=== PATIENT | male | born 1975 | race Caucasian/White ===

== ENCOUNTER 2018-03-09 05:41 | Emergency (ER) | payer OTHER ==
[2018-03-09 06:30] LABS: ADD MAN DIFF? NO
[2018-03-09 06:31] LABS: BASOPHIL # 0.1 10^3/ul (0.0-0.1); EOSINOPHILS # 0.8 10^3/ul (0.0-0.5); EOSINOPHILS % 11.7 % (0.0-7.0); HEMATOCRIT 31.7 % (42.0-52.0); HEMOGLOBIN 9.9 g/dl (14.0-18.0); LYMPHOCYTES # 0.8 10^3/ul (0.8-2.9); LYMPHOCYTES % 11.2 % (15.0-51.0); MEAN CORPUSCULAR HEMOGLOBIN 29.3 pg (29.0-33.0); MEAN CORPUSCULAR HGB CONC 31.2 g/dl (32.0-37.0); MEAN CORPUSCULAR VOLUME 93.8 fl (82.0-101.0); MEAN PLATELET VOLUME 9.8 fl (7.4-10.4); MONOCYTE # 0.9 10^3/ul (0.3-0.9); MONOCYTES % 13.4 % (0.0-11.0); NEUTROPHIL # 4.3 10^3/ul (1.6-7.5); NEUTROPHILS % 62.4 % (39.0-77.0); PLATELET COUNT 257 10^3/UL (140-415); RED BLOOD COUNT 3.38 10^6/ul (4.70-6.10); RED CELL DISTRIBUTION WIDTH 15.4 % (11.5-14.5)
[2018-03-09 06:31] LABS: WHITE BLOOD COUNT 6.8 10^3/ul (4.8-10.8)
[2018-03-09 06:49] LABS: ALANINE AMINOTRANSFERASE 21 IU/L (13-69); ALBUMIN/GLOBULIN RATIO 1.11; ALKALINE PHOSPHATASE 190 IU/L (42-121); ANION GAP 11 (5-13); ASPARTATE AMINO TRANSFERASE 24 IU/L (15-46); BILIRUBIN,INDIRECT 0.1 mg/dl (0-1.1); BILIRUBIN,TOTAL 0.1 mg/dl (0.2-1.3); BLOOD UREA NITROGEN 41 mg/dl (7-20); CALCIUM 8.5 mg/dl (8.4-10.2); CARBON DIOXIDE 35 mmol/L (21-31); CHLORIDE 98 mmol/L (97-110); CREATININE 6.02 mg/dl (0.61-1.24); GLUCOSE 98 mg/dl (70-220); LIPASE 88 U/L (23-300); POTASSIUM 4.7 mmol/L (3.5-5.1); SODIUM 144 mmol/L (135-144); TOTAL PROTEIN 7.6 g/dl (6.1-8.1)
[2018-03-09] MEDS: ONDANSETRON 4 MG INJ IV (06:50)
[2018-03-09] MEDS: FAMOTIDINE 20 MG INJ IV (06:50)
[2018-03-09] MEDS: LIDOCAINE/MYLANTA 40 ML BTL PO (06:50)
[2018-03-09] MEDS: HYDROmorphONE 1 MG/ML SYG IV (06:50)
[2018-03-09] MEDS: SOD CHLORIDE 0.9% 500 ML IV (06:50)
[2018-03-09 06:51] LABS: INR 1.02; PROTIME 13.5 Sec (11.9-14.9); PT RATIO 1.1
[2018-03-09 06:52] LABS: PARTIAL THROMBOPLASTIN TIME 39.4 Sec (23.0-35.0)
[2018-03-09 07:00] LABS: TROPONIN-I 0.017 ng/ml (0.000-0.120)
[2018-03-09] MEDS: NICARDipine HCL 30 MG CAPSULE PO (07:44)
== END 2018-03-09 08:16 | disposition home or self-care (01) ==
LOC: E/R 05:41
DX: I12.0 Hypertensive chronic kidney disease with stage 5 chronic kidney disease or end stage renal disease (principal); N18.6 End stage renal disease; Z99.2 Dependence on renal dialysis
CPT/HCPCS: 36415; 71045; 74176; 80053; 83690; 84484; 85025; 85610; 85730; 93005; 96374; 96375; 99285-25

== ENCOUNTER 2018-04-01 18:08 | Inpatient (IN) | payer OTHER ==
[2018-04-01] MEDS ORDERED: ACETAMINOPHEN 325 MG TAB PO ×2 (19:00→21:00)
[2018-04-01] MEDS: HYDROmorphONE 1 MG/ML SYG IV (19:56)
[2018-04-01] MEDS: HYDROCODONE/APAP (5/325) TAB PO (23:21)
[2018-04-02] MEDS: NIFEdipine (XL) 60 MG TAB PO ×3 (00:03→20:45)
[2018-04-02] MEDS: LEVETIRACETAM 500 MG TAB PO ×2 (00:03→20:45)
[2018-04-02] MEDS: LABETALOL 100 MG TAB PO ×3 (00:04→20:44)
[2018-04-02] MEDS: HYDROmorphONE 1 MG/ML SYG IV ×6 (00:23→22:42)
[2018-04-02] MEDS: PANTOPRAZOLE (EC) 40 MG TAB PO (06:14)
[2018-04-02 06:21] LABS: ADD MAN DIFF? NO
[2018-04-02 06:22] LABS: BASOPHIL # 0.1 10^3/ul (0.0-0.1); BASOPHILS % 0.9 % (0.0-2.0); EOSINOPHILS # 0.8 10^3/ul (0.0-0.5); EOSINOPHILS % 15.1 % (0.0-7.0); HEMATOCRIT 30.5 % (42.0-52.0); HEMOGLOBIN 9.7 g/dl (14.0-18.0); LYMPHOCYTES # 0.8 10^3/ul (0.8-2.9); LYMPHOCYTES % 14.2 % (15.0-51.0); MEAN CORPUSCULAR HEMOGLOBIN 29.1 pg (29.0-33.0); MEAN CORPUSCULAR HGB CONC 31.8 g/dl (32.0-37.0); MEAN CORPUSCULAR VOLUME 91.6 fl (82.0-101.0); MONOCYTE # 0.8 10^3/ul (0.3-0.9); MONOCYTES % 13.8 % (0.0-11.0); NEUTROPHIL # 3.1 10^3/ul (1.6-7.5); NEUTROPHILS % 55.8 % (39.0-77.0); PLATELET COUNT 323 10^3/UL (140-415); RED BLOOD COUNT 3.33 10^6/ul (4.70-6.10); RED CELL DISTRIBUTION WIDTH 15.4 % (11.5-14.5)
[2018-04-02 06:22] LABS: WHITE BLOOD COUNT 5.6 10^3/ul (4.8-10.8)
[2018-04-02 06:43] LABS: ANION GAP 15 (5-13); BLOOD UREA NITROGEN 62 mg/dl (7-20); CALCIUM 8.3 mg/dl (8.4-10.2); CARBON DIOXIDE 26 mmol/L (21-31); CHLORIDE 102 mmol/L (97-110); CREATININE 7.93 mg/dl (0.61-1.24); Estimated GFR 7 mL/min (>60); GLUCOSE 100 mg/dl (70-220); POTASSIUM 4.9 mmol/L (3.5-5.1); SODIUM 143 mmol/L (135-144)
[2018-04-02] MEDS: DOCUSATE SODIUM 100 MG CAP PO (08:25)
[2018-04-02] MEDS: SEVELAMER CARBONATE 0.8 GM PKT PO (08:26)
[2018-04-02] MEDS: CALCIUM ACETATE 667 MG CAP PO ×3 (08:26→17:29)
[2018-04-02] MEDS ORDERED: VANCOMYCIN IV PER PHARMACY XX (10:30)
[2018-04-02 14:11] LABS: VANCOMYCIN,RANDOM < 5.0 ug/ml
[2018-04-02] MEDS: VANCOMYCIN 1.25 GM in SOD CHLORIDE 0.9% 250 ML IVPB (16:24)
[2018-04-02 18:13] LABS: HEPATITIS B SURFACE ANTIGEN NEGATIVE (NEGATIVE)
[2018-04-02] MEDS: HYDROCODONE/APAP (5/325) TAB PO (20:45)
[2018-04-03] MEDS: HYDROmorphONE 1 MG/ML SYG IV ×6 (02:43→22:08)
[2018-04-03] MEDS: HYDROCODONE/APAP (5/325) TAB PO (03:53)
[2018-04-03 06:03] LABS: URIC ACID 6.1 mg/dl (3.1-7.9)
[2018-04-03] MEDS: PANTOPRAZOLE (EC) 40 MG TAB PO (06:15)
[2018-04-03] MEDS: CALCIUM ACETATE 667 MG CAP PO ×3 (08:00→17:27)
[2018-04-03] MEDS: NIFEdipine (XL) 60 MG TAB PO ×3 (09:00→20:47)
[2018-04-03] MEDS: LABETALOL 100 MG TAB PO ×3 (09:00→20:48)
[2018-04-03] MEDS: LIDOCAINE 1% (MPF) 5 ML VIAL INJ (09:39)
[2018-04-03] MEDS: DOCUSATE SODIUM 100 MG CAP PO (12:13)
[2018-04-03] MEDS: LEVETIRACETAM 500 MG TAB PO (20:47)
[2018-04-04] MEDS: HYDROCODONE/APAP (5/325) TAB PO ×3 (01:03→14:26)
[2018-04-04] MEDS: HYDROmorphONE 1 MG/ML SYG IV ×6 (02:09→22:29)
[2018-04-04 05:31] LABS: ADD MAN DIFF? NO
[2018-04-04 05:44] LABS: WHITE BLOOD COUNT 4.8 10^3/ul (4.8-10.8)
[2018-04-04 05:44] LABS: BASOPHIL # 0.1 10^3/ul (0.0-0.1); EOSINOPHILS # 0.8 10^3/ul (0.0-0.5); EOSINOPHILS % 16.9 % (0.0-7.0); HEMATOCRIT 31.5 % (42.0-52.0); HEMOGLOBIN 9.8 g/dl (14.0-18.0); LYMPHOCYTES % 20.5 % (15.0-51.0); MEAN CORPUSCULAR HGB CONC 31.1 g/dl (32.0-37.0); MEAN CORPUSCULAR VOLUME 93.2 fl (82.0-101.0); MEAN PLATELET VOLUME 9.8 fl (7.4-10.4); MONOCYTE # 0.9 10^3/ul (0.3-0.9); NEUTROPHIL # 2.1 10^3/ul (1.6-7.5); NEUTROPHILS % 43.4 % (39.0-77.0); PLATELET COUNT 332 10^3/UL (140-415); RED BLOOD COUNT 3.38 10^6/ul (4.70-6.10)
[2018-04-04 05:52] LABS: VANCOMYCIN,RANDOM 13.4 ug/ml
[2018-04-04] MEDS: PANTOPRAZOLE (EC) 40 MG TAB PO (06:15)
[2018-04-04] MEDS: DOCUSATE SODIUM 100 MG CAP PO (08:29)
[2018-04-04] MEDS: LABETALOL 100 MG TAB PO ×2 (08:29→20:16)
[2018-04-04] MEDS: NIFEdipine (XL) 60 MG TAB PO ×2 (08:29→20:16)
[2018-04-04] MEDS: CALCIUM ACETATE 667 MG CAP PO ×3 (08:30→17:04)
[2018-04-04] MEDS: VANCOMYCIN 1 GM 250 ML IVPB (15:51)
[2018-04-04] MEDS: LEVETIRACETAM 500 MG TAB PO (20:16)
[2018-04-05] MEDS: HYDROCODONE/APAP (5/325) TAB PO ×2 (00:05→10:20)
[2018-04-05] MEDS: HYDROmorphONE 1 MG/ML SYG IV ×4 (03:10→15:24)
[2018-04-05] MEDS: PANTOPRAZOLE (EC) 40 MG TAB PO (07:06)
[2018-04-05] MEDS: CALCIUM ACETATE 667 MG CAP PO ×3 (08:35→17:37)
[2018-04-05] MEDS: NIFEdipine (XL) 60 MG TAB PO (08:35)
[2018-04-05] MEDS: LABETALOL 100 MG TAB PO (08:35)
[2018-04-05] MEDS: DOCUSATE SODIUM 100 MG CAP PO (08:36)
[2018-04-05] MEDS ORDERED: ALBUMIN HUMAN 25% 100 ML IV (09:30)
[2018-04-05] MEDS: BETAMET NA PHOS/AC(6 MG/ML) 5ML INJ INJ (17:03)
[2018-04-05] MEDS: BUPIVACAINE 0.5%/EPI (SDV) 30 ML INJ INJ (17:03)
[2018-04-05] MEDS: LIDOCAINE 1% (MPF) 5 ML VIAL INJ (17:09)
== END 2018-04-05 18:25 | disposition still patient (30) | DRG 682 ==
LOC: 6WM 18:08
PROVIDERS: Internal Medicine Nephrology
PROC: 5A1D70Z Performance of Urinary Filtration, Intermittent, Less than 6 Hours Per Day (ICD-10-PCS; principal; 2018-04-05)
PROC: 3E0U33Z Introduction of Anti-inflammatory into Joints, Percutaneous Approach (ICD-10-PCS; 2018-04-05)
DX: I12.0 Hypertensive chronic kidney disease with stage 5 chronic kidney disease or end stage renal disease (principal); N18.6 End stage renal disease; L03.113 Cellulitis of right upper limb; N25.81 Secondary hyperparathyroidism of renal origin; E85.89 Other amyloidosis; E87.70 Fluid overload, unspecified; G40.909 Epilepsy, unspecified, not intractable, without status epilepticus; Z76.5 Malingerer [conscious simulation]; G89.29 Other chronic pain; E78.5 Hyperlipidemia, unspecified; M10.021 Idiopathic gout, right elbow; Z99.2 Dependence on renal dialysis; Z90.49 Acquired absence of other specified parts of digestive tract
CPT/HCPCS: 80048; 80202; 84560; 85025; 87081; 87340; 90935

== ENCOUNTER 2018-05-01 23:59 | Emergency (ER) | payer OTHER ==
[2018-05-02] MEDS: HYDROCODONE/APAP (10/325) TAB PO (01:47)
== END 2018-05-02 03:08 | disposition home or self-care (01) ==
LOC: FTE 23:59
DX: M25.521 Pain in right elbow (principal); M25.531 Pain in right wrist
CPT/HCPCS: 73080; 73080-RT; 73110-RT; 99283-25

== ENCOUNTER 2018-08-26 22:29 | Emergency (ER) | payer OTHER ==
[2018-08-27] MEDS: ONDANSETRON 4 MG INJ IV (01:36)
[2018-08-27] MEDS: morphine 4 MG/ML VIAL IV (01:37)
== END 2018-08-27 03:17 | disposition home or self-care (01) ==
LOC: E/R 22:29
DX: M54.5 Low back pain (principal)
CPT/HCPCS: 72100; 96374; 96375; 99284-25